=== PATIENT | female | born 1945 | race Caucasian/White ===

== ENCOUNTER 2017-06-30 05:17 | Inpatient (IN) | payer MEDICARE, BC ==
[2017-06-24 13:49] LABS: CLARITY,URINE CLOUDY (Clear); COLOR,URINE YELLOW (Yellow); GLUCOSE, URINE NEGATIVE (Neg); KETONES,URINE NEGATIVE (Neg); LEUKOCYTE ESTERASE ,URINE SMALL (Neg); NITRITES, URINE NEGATIVE (Neg); OCCULT BLOOD,URINE NEGATIVE (Neg); PROTEIN,URINE TRACE mg/dl (Neg); UROBILINOGEN,URINE 0.2 E.U/dL (0.2-1.0)
[2017-06-24 13:51] LABS: UA COLLECTION TYPE NON-SPECIFIED
[2017-06-24 13:52] LABS: BASOPHILS % (AUTO) 0.4 % (0-1); EOSINOPHILS # (AUTO) 0.3 X10'3 (0-0.9); EOSINOPHILS % (AUTO) 3.1 % (0-6); LYMPHOCYTES # (AUTO) 2.3 X10'3 (1.1-4.8); LYMPHOCYTES % (AUTO) 21.9 % (21-51); MEAN CORPUSCULAR HEMOGLOBIN 27.8 PG (27.0-31.0); MEAN CORPUSCULAR VOLUME 84.2 FL (78-98); MONOCYTES # (AUTO) 0.4 X10'3 (0-0.9); MONOCYTES % (AUTO) 4.2 % (2-12); NEUTROPHILS # (AUTO) 7.5 X10'3 (1.8-7.7); NEUTROPHILS % (AUTO) 70.4 % (42-75); PRE OP HEMATOCRIT 43.1 % (35.0-45.0); PRE OP HEMOGLOBIN 14.2 g/dL (12.0-16.0); PRE OP PLATELET COUNT 312 X10'3 (140-440); RED BLOOD COUNT 5.12 X10'6 (4.20-5.60); RED CELL DISTRIBUTION WIDTH 13.2 % (11.5-14.5)
[2017-06-24 14:00] LABS: PRE OP INR 0.9 INR; PRE OP PROTIME 9.6 SECONDS (9.0-12.0)
[2017-06-24 14:00] LABS: MUCUS STRANDS MODERATE /LPF (Neg); SQUAMOUS EPITHELIAL CELL,UR MANY /LPF (FEW)
[2017-06-24 14:01] LABS: BACTERIA,URINE 2+ /HPF (Neg); RBC,URINE 0-2 /HPF (0-2); TRANSITIONAL EPI CELLS,URINE MODERATE /HPF
[2017-06-24 14:02] LABS: WBC CLUMPS,URINE FEW /HPF (NEGATIVE)
[2017-06-24 14:24] LABS: ALBUMIN/GLOBULIN RATIO 1.1 (1.1-1.5); ALKALINE PHOSPHATASE 110 IU/L (46-116); BLOOD UREA NITROGEN 19 MG/DL (7-18); CALCIUM 9.2 MG/DL (8.5-10.1); CHLORIDE 107 MMOL/L (99-107); PRE OP ALT 25 U/L (30-65); PRE OP ANION GAP 10 (8-16); PRE OP AST 16 U/L (10-37); PRE OP BILIRUB, TOTAL 0.4 MG/DL (0.0-1.0); PRE OP GLUCOSE 111 MG/DL (70-104); PRE OP POTASSIUM 3.7 MMOL/L (3.4-5.1); PRE OP SODIUM 141 MMOL/L (135-145); TOTAL CARBON DIOXIDE 24.4 MMOL/L (24-32); TOTAL PROTEIN 7.7 G/DL (6.4-8.2); eGFR 55 ML/MIN
[2017-06-26 12:32] LABS: CLARITY,URINE SLIGHTLY CLOUDY (Clear); COLOR,URINE YELLOW (Yellow); GLUCOSE, URINE NEGATIVE (Neg); KETONES,URINE NEGATIVE (Neg); LEUKOCYTE ESTERASE ,URINE SMALL (Neg); NITRITES, URINE NEGATIVE (Neg); OCCULT BLOOD,URINE TRACE-INTACT (Neg); PH,URINE 6.5 (4.8-8.0); PROTEIN,URINE NEGATIVE (Neg); UA COLLECTION TYPE CLN CATCH MIDSTREAM; UROBILINOGEN,URINE 0.2 E.U/dL (0.2-1.0)
[2017-06-26 12:38] LABS: MUCUS STRANDS FEW /LPF (Neg); SQUAMOUS EPITHELIAL CELL,UR MANY /LPF (FEW)
[2017-06-26 12:39] LABS: BACTERIA,URINE FEW /HPF (Neg); RBC,URINE 0-2 /HPF (0-2)
[2017-06-26 12:40] LABS: WBC,URINE 0-4 /HPF (0-4)
[~2017-06-30] VITALS: Ht 157.5 cm; Wt 77.1 kg
[2017-06-30] VITALS (18 sets, daily range): BP systolic 109–142; BP diastolic 56–91
[~2017-06-30 05:17] MED LIST: ACET250T3 PO; AMLO5TAB PO; CETI-194 PO; CHOL10002 PO; NAPR220C15 PO; PARO40TA4 PO; PREVCR VG; ringers solution, lacted 1,000 ML IV SCH
[2017-06-30] MEDS ORDERED: celeCOXIB 100mg capsule PO ONE (05:30)
[2017-06-30] MEDS ORDERED: tranexamic acid inj. 1,000 MG in normal saline 100ml IV soln 90 ML IV ONE ×2 (05:30→07:25)
[2017-06-30] MEDS ORDERED: oxyCODONE SR 10mg (sust. release) tab PO ONE (05:30)
[2017-06-30] MEDS ORDERED: metoclopramide 5 mg/ml inj IV ONE (05:30)
[2017-06-30] MEDS ORDERED: famotidine 20mg tablet PO ONE (05:30)
[2017-06-30] MEDS ORDERED: gabapentin 300mg capsule PO ONE (05:30)
[2017-06-30] MEDS ORDERED: acetaminophen 325mg tablet PO ONE (05:30)
[2017-06-30] MEDS ORDERED: vancomycin inj 1,500 MG in normal saline 300ml IV soln IV ONE (05:30)
[2017-06-30] MEDS ORDERED: cefazolin/dext.iso 2gm/50ml 50 ML IV ONE (05:30)
[2017-06-30] MEDS ORDERED: LIDOcaine 1% (10mg/ml) 2ml vial ONE (05:55)
[2017-06-30] MEDS ORDERED: vancomycin 1,000mg inj ONE (06:47)
[2017-06-30] MEDS ORDERED: epiNEPHrine 1 mg/ml inj ONE (06:47)
[2017-06-30] MEDS ORDERED: ROPIVAcaine 0.5% (5mg/ml) 30ml vial ONE (06:47)
[2017-06-30] MEDS ORDERED: ketorolac trometh. 30mg/ml inj. ONE (06:47)
[2017-06-30] MEDS ORDERED: cloNIDine hcl/PF 100mcg/ml inj ONE ×3 (06:47→07:19)
[2017-06-30] MEDS ORDERED: MIDAZolam 1mg/ml 10ml vial ONE (07:16)
[2017-06-30] MEDS ORDERED: fentaNYL/PF 50MCG/1 ML 2ML syringe ONE (07:16)
[2017-06-30] MEDS ORDERED: HYDROmorphone 1 mg/ml syringe IV PRN ×2 (07:20)
[2017-06-30] MEDS ORDERED: ondansetron/PF 4mg/2ml inj IV PRN ×2 (07:20→08:35)
[2017-06-30] MEDS ORDERED: diphenhydrAMINE 25mg capsule PO PRN ×2 (07:20)
[2017-06-30] MEDS ORDERED: bisacodyl 10mg suppository rectal RC PRN (07:20)
[2017-06-30] MEDS ORDERED: acetaminophen 325mg tablet PO PRN (07:20)
[2017-06-30] MEDS ORDERED: magnesium hydroxide 30ml (MOM) UD suspension PO PRN (07:20)
[2017-06-30] MEDS ORDERED: diphenhydrAMINE 50 mg/ml inj ONE (07:53)
[2017-06-30] MEDS ORDERED: ePHEDrine 50MG/ML INJ. ONE (07:57)
[2017-06-30] MEDS: gabapentin 300mg capsule PO SCH ×3 (08:00→21:00)
[2017-06-30] MEDS ORDERED: vancomycin/NS 1 GM ADD-VANTAGE 250 ML IV SCH (08:00)
[2017-06-30] MEDS ORDERED: oxyCODONE/APAP 10/325mg tablet PO SCH (08:00)
[2017-06-30] MEDS: ascorbic acid 500mg tablet PO SCH ×2 (08:00→21:36)
[2017-06-30] MEDS: multivitamins, therapeutics tablet PO SCH (08:00)
[2017-06-30] MEDS: celeCOXIB 100mg capsule PO SCH ×2 (08:00→20:00)
[2017-06-30] MEDS: aspirin 325mg tablet PO SCH (08:30)
[2017-06-30] MEDS ORDERED: ringers solution, lacted 1,000 ML IV SCH (08:33)
[2017-06-30] MEDS ORDERED: proCHLORperazine 10 MG/2 ml inj IV PRN (08:35)
[2017-06-30] MEDS ORDERED: morphine 2 MG/ML inj. syringe IV PRN ×2 (08:35)
[2017-06-30] MEDS ORDERED: meperidine/PF 50mg/ml syringe IV PRN ×3 (08:35)
[2017-06-30] MEDS: oxyCODONE/APAP 10/325mg tablet PO PRN (15:00)
[2017-06-30] MEDS: cefazolin 1gm/NS 100mL 100 ML IV SCH (15:01)
[2017-06-30] MEDS: sennosides 8.6mg tablet PO SCH (21:00)
[2017-06-30] MEDS: acetaZOLAMIDE 250mg tablet PO SCH (21:00)
[2017-06-30] MEDS ORDERED: phenazopyridine 100mg tablet PO PRN (21:05)
[2017-06-30] MEDS: lactobacillus rhamnosus 10,000 MMU CELLS/CAPSULE PO SCH (21:36)
[2017-06-30] MEDS: potassium cl 20mEq in 1/2 NS 1,000 ML IV SCH ×2 (21:37→23:16)
[2017-07-01] MEDS ORDERED: ceFAZolin/D5W- 1GM premix 50 ML IV SCH
[2017-07-01] MEDS: cefazolin 1gm/NS 100mL 100 ML IV SCH (00:39)
[2017-07-01 02:30] VITALS: BP 127/68
[2017-07-01] MEDS: oxyCODONE/APAP 10/325mg tablet PO PRN ×5 (03:51→21:54)
[2017-07-01] MEDS: potassium cl 20mEq in 1/2 NS 1,000 ML IV SCH ×4 (03:58→23:16)
[2017-07-01 06:00] VITALS: BP 124/62
[2017-07-01 06:01] LABS: BASOPHILS # (AUTO) 0.1 X10'3 (0-0.2); BASOPHILS % (AUTO) 0.3 % (0-1); EOSINOPHILS # (AUTO) 0.2 X10'3 (0-0.9); EOSINOPHILS % (AUTO) 1.5 % (0-6); HEMATOCRIT 32.7 % (35.0-45.0); HEMOGLOBIN 11.1 g/dl (12.0-16.0); LYMPHOCYTES # (AUTO) 1.5 X10'3 (1.1-4.8); LYMPHOCYTES % (AUTO) 9.2 % (21-51); MEAN CORPUSCULAR HEMOGLOBIN 28.5 PG (27.0-31.0); MEAN CORPUSCULAR HGB CONC 33.9 % (33.0-36.5); MEAN CORPUSCULAR VOLUME 84.2 FL (78-98); MEAN PLATELET VOLUME 8.6 FL (7.4-10.4); MONOCYTES # (AUTO) 1.3 X10'3 (0-0.9); PLATELET COUNT 280 X10'3 (140-440); RED BLOOD COUNT 3.89 X10'6 (4.20-5.60); RED CELL DISTRIBUTION WIDTH 13.9 % (11.5-14.5)
[2017-07-01 06:26] LABS: ANION GAP 9 (8-16); CHLORIDE 104 MMOL/L (99-107); POTASSIUM 4.9 MMOL/L (3.5-5.1); SODIUM 137 MMOL/L (135-145); TOTAL CARBON DIOXIDE 23.9 MMOL/L (24-32)
[2017-07-01] MEDS ORDERED: PARoxetine 20mg tablet PO SCH (08:00)
[2017-07-01] MEDS: amLODIPine 5mg tablet PO SCH (08:19)
[2017-07-01] MEDS: celeCOXIB 100mg capsule PO SCH ×2 (08:19→20:21)
[2017-07-01] MEDS: aspirin 325mg tablet PO SCH (08:19)
[2017-07-01] MEDS: gabapentin 300mg capsule PO SCH ×3 (08:19→20:30)
[2017-07-01] MEDS: lactobacillus rhamnosus 10,000 MMU CELLS/CAPSULE PO SCH ×2 (08:20→17:18)
[2017-07-01 10:30] VITALS: BP 145/73
[2017-07-01] MEDS: vitamin D (cholecalciferol) 1,000 unit tablet PO SCH (11:12)
[2017-07-01] MEDS: multivitamins, therapeutics tablet PO SCH (11:12)
[2017-07-01] MEDS: ascorbic acid 500mg tablet PO SCH ×2 (11:12→20:21)
[2017-07-01] MEDS: cetirizine 10mg tablet PO SCH (11:12)
[2017-07-01 14:00] VITALS: BP 166/81
[2017-07-01 19:00] VITALS: BP 172/87
[2017-07-01] MEDS: sennosides 8.6mg tablet PO SCH (20:21)
[2017-07-01] MEDS: acetaZOLAMIDE 250mg tablet PO SCH (21:00)
[2017-07-01 22:00] VITALS: BP 165/56
[2017-07-02] MEDS: oxyCODONE/APAP 10/325mg tablet PO PRN ×3 (01:44→12:45)
[2017-07-02 05:57] LABS: BASOPHILS # (AUTO) 0.1 X10'3 (0-0.2); BASOPHILS % (AUTO) 0.4 % (0-1); EOSINOPHILS # (AUTO) 0.3 X10'3 (0-0.9); EOSINOPHILS % (AUTO) 2.6 % (0-6); HEMATOCRIT 30.9 % (35.0-45.0); HEMOGLOBIN 10.6 g/dl (12.0-16.0); LYMPHOCYTES # (AUTO) 2.1 X10'3 (1.1-4.8); LYMPHOCYTES % (AUTO) 16.3 % (21-51); MEAN CORPUSCULAR HEMOGLOBIN 28.8 PG (27.0-31.0); MEAN CORPUSCULAR HGB CONC 34.3 % (33.0-36.5); MEAN CORPUSCULAR VOLUME 83.9 FL (78-98); MONOCYTES # (AUTO) 1.4 X10'3 (0-0.9); MONOCYTES % (AUTO) 10.8 % (2-12); NEUTROPHILS # (AUTO) 8.9 X10'3 (1.8-7.7); NEUTROPHILS % (AUTO) 69.9 % (42-75); PLATELET COUNT 257 X10'3 (140-440); RED BLOOD COUNT 3.69 X10'6 (4.20-5.60); RED CELL DISTRIBUTION WIDTH 13.7 % (11.5-14.5); WHITE BLOOD COUNT 12.7 X10'3 (4.5-11.0)
[2017-07-02 06:00] VITALS: BP 148/75
[2017-07-02] MEDS: celeCOXIB 100mg capsule PO SCH (07:52)
[2017-07-02] MEDS: gabapentin 300mg capsule PO SCH ×2 (07:52→12:44)
[2017-07-02] MEDS: cetirizine 10mg tablet PO SCH (07:52)
[2017-07-02] MEDS: lactobacillus rhamnosus 10,000 MMU CELLS/CAPSULE PO SCH (07:52)
[2017-07-02] MEDS: amLODIPine 5mg tablet PO SCH (07:52)
[2017-07-02] MEDS: aspirin 325mg tablet PO SCH (07:52)
[2017-07-02] MEDS: ascorbic acid 500mg tablet PO SCH (07:52)
[2017-07-02] MEDS: multivitamins, therapeutics tablet PO SCH (07:52)
[2017-07-02] MEDS: vitamin D (cholecalciferol) 1,000 unit tablet PO SCH (07:52)
[2017-07-02] MEDS ORDERED: ASPI-1 PO (08:38)
[2017-07-02 10:00] VITALS: BP 138/60
== END 2017-07-02 13:00 | disposition home or self-care (01) | DRG 470 ==
LOC: PAS IN 05:17 → EDSTATUS 07:30 → ORTHO 4S 11:15
PROVIDERS: ADMIT Orthopaedic Surgery; ATTEND Orthopaedic Surgery
PROC: 3E0T3BZ Introduction of Anesthetic Agent into Peripheral Nerves and Plexi, Percutaneous Approach (ICD-10-PCS; 2017-06-30)
PROC: 8E0Y0CZ Robotic Assisted Procedure of Lower Extremity, Open Approach (ICD-10-PCS; 2017-06-30)
PROC: 0SRD0J9 Replacement of Left Knee Joint with Synthetic Substitute, Cemented, Open Approach (ICD-10-PCS; principal; 2017-06-30 07:20)
DX: M17.0 Bilateral primary osteoarthritis of knee (principal); D62 Acute posthemorrhagic anemia; E66.9 Obesity, unspecified; F32.9 Major depressive disorder, single episode, unspecified; I10 Essential (primary) hypertension; K21.9 Gastro-esophageal reflux disease without esophagitis; Z68.31 Body mass index [BMI] 31.0-31.9, adult; Z88.8 Allergy status to other drugs, medicaments and biological substances; Z79.899 Other long term (current) drug therapy; Z79.82 Long term (current) use of aspirin
CPT/HCPCS: 36415; 71046; 73560; 80051; 80053; 81001; 85025; 85610; 85730; 86885; 86900; 86901; 87070; 97116; 97162; 97530; 97535; A6255; A6449; A6455; A7000; C1713; C1758; C1776; J0171; J0690; J0735; J1200; J1885; J2250; J2765; J2795; J3010; J3370; J3490; J7030; J7120